=== PATIENT | male | born 1995 | race Caucasian/White ===

== ENCOUNTER 2017-05-22 21:49 | Emergency (ER) | payer OTHER ==
[~2017-05-22] VITALS: Ht 152.4 cm; Wt 88.5 kg
[~2017-05-22 21:49] MED LIST: Amoxicillin500 MG PO; Bactrim Ds Tab1 EACH PO; CEPH500 PO; CLAR250 PO; CYCL10 PO; HYDACE5 PO; HYDACE5325 PO; Keflex500 MG PO; PRED20 PO; Percocet 5-3251 EACH PO
[2017-05-22] MEDS ORDERED: PENVK500 PO (22:37)
[2017-05-22] MEDS ORDERED: IBUP800 PO (22:37)
[2017-10-30] MEDS ORDERED: Cleocin HCl300 MG PO (18:07)
[2018-03-02] MEDS ORDERED: Prednisone20 MG PO (08:38)
== END 2017-05-22 22:30 | disposition home or self-care (01) ==
LOC: ER 21:49
DX: K02.9 Dental caries, unspecified (principal); K03.81 Cracked tooth; Z87.891 Personal history of nicotine dependence
CPT/HCPCS: 99283

== ENCOUNTER 2017-06-13 20:19 | Emergency (ER) | payer OTHER ==
[~2017-06-13] VITALS: Ht 182.9 cm; Wt 86.2 kg
[~2017-06-13 20:19] MED LIST changes: +IBUP800 PO; +PENVK500 PO
[2017-06-13] MEDS ORDERED: ERYT1OIN LEFTEYE (23:54)
[2017-10-30] MEDS ORDERED: Cleocin HCl300 MG PO (18:07)
[2018-03-02] MEDS ORDERED: Prednisone20 MG PO (08:38)
== END 2017-06-14 00:06 | disposition home or self-care (01) ==
LOC: ER 20:19
DX: T15.12XA Foreign body in conjunctival sac, left eye, initial encounter (principal); Z87.891 Personal history of nicotine dependence
CPT/HCPCS: 99283

== ENCOUNTER 2017-10-20 10:30 | Emergency (ER) | payer OTHER ==
[~2017-10-20] VITALS: Ht 182.9 cm; Wt 81.7 kg
[~2017-10-20 10:30] MED LIST changes: +ERYT1OIN LEFTEYE
[2017-10-20] MEDS ORDERED: PENVK500 PO (11:42)
== END 2017-10-20 12:06 | disposition home or self-care (01) ==
LOC: ER 10:30
DX: K04.7 Periapical abscess without sinus (principal); Z79.2 Long term (current) use of antibiotics; F17.200 Nicotine dependence, unspecified, uncomplicated
CPT/HCPCS: 99282

== ENCOUNTER 2018-05-18 15:51 | Observation (INO) | payer OTHER ==
[~2018-05-18] VITALS: Ht 182.9 cm; Wt 86.2 kg
[~2018-05-18 15:51] MED LIST changes: +Cleocin HCl300 MG PO; +Prednisone20 MG PO
[2018-05-18 17:35] LABS: BASOPHILS ABSOLUTE AUTO 0.04 K/mm3 (0.00-0.23); BASOPHILS PERCENT AUTO 0 % (0-2); EOSINOPHILS ABSOLUTE AUTO 0.01 K/mm3 (0.00-0.68); EOSINOPHILS PERCENT AUTO 0 % (0-6); Hematocrit 50.2 % (37.0-53.0); Hemoglobin 17.5 g/dL (13.5-17.5); IMMATURE GRAN ABSOLUTE AUTO 0.04 K/mm3 (0.00-0.10); IMMATURE GRAN PERCENT AUTO 0 % (0-1); LYMPHOCYTES ABSOLUTE AUTO 1.87 K/mm3 (0.84-5.20); LYMPHOCYTES PERCENT AUTO 16 % (21-46); MONOCYTES ABSOLUTE AUTO 0.71 K/mm3 (0.16-1.47); MONOCYTES PERCENT AUTO 6 % (4-13); Mean Corpuscular HGB 31.7 pg (26.0-34.0); Mean Corpuscular HGB Conc 34.9 g/dL (31.5-36.5); Mean Corpuscular Volume 91 fL (80-100); Mean Platelet Volume 9.8 fL (9.1-12.4); NEUTROPHILS ABSOLUTE AUTO 9.17 K/mm3 (1.96-9.15); NEUTROPHILS PERCENT AUTO 78 % (41-73); Platelet Count 255 K/mm3 (150-400); RDW Coefficient Variation 11.9 % (11.7-14.2); RDW Standard Deviation 39.6 fL (35.1-46.3); Red Blood Cell Count 5.52 M/mm3 (4.30-5.90); White Blood Cell Count 11.84 K/mm3 (4.00-11.30)
[2018-05-18 17:53] LABS: Alanine Aminotransfer (ALT/SGP 32 U/L (12-78); Albumin, Blood 4.7 g/dL (3.4-5.0); Albumin/Globulin Ratio 1.3 (0.8-1.8); Alk Phos 110 U/L (50-136); Anion Gap 11 mmol/L (6-16); Aspartate Aminotrans (AST/SGOT 52 U/L (12-37); Bilirubin, Total 1.6 mg/dL (0.1-1.0); Blood Urea Nitrogen 23 mg/dL (8-24); Bun/Creatinine Ratio 26.7 (12.0-20.0); CO2, Blood 23 mmol/L (21-32); Calcium, Blood 9.5 mg/dL (8.5-10.1); Chloride, Blood 105 mmol/L (98-108); Creatinine, Blood 0.86 mg/dL (0.60-1.20); Ethanol (Alcohol), Blood, Med <3 mg/dL; Globulin, Blood 3.5 g/dL (2.2-4.0); Glomerular Filtration Rate >60 (60-); Glucose, Blood 137 mg/dL (70-99); Potassium, Blood 4.5 mmol/L (3.5-5.5); Salicylate 3.1 mg/dL (2.8-20.0); Sodium, Blood 139 mmol/L (136-145); Total Protein, Blood 8.2 g/dL (6.4-8.2)
[2018-05-18 17:56] LABS: Thyroid Stimulating Hormone 0.857 uIU/mL (0.360-4.800); Thyroxine (T4) 10.2 ug/dL (4.5-12.1)
[2018-05-18 17:58] LABS: Acetaminophen, Random <2.0 ug/mL (10.0-30.0)
[2018-05-18 18:10] LABS: Source, Urine Clean Catch
[2018-05-18 18:32] LABS: Appearance, Urine Clear (Clear); Blood, Urine 1+ (Neg); Color, Urine Yellow (P-Yellow); Glucose Qualitative, Urine Neg (Neg); Ketones, Urine 4+ (Neg); Leukocyte Esterase, Urine 1+ (Neg); Nitrite, Urine Neg (Neg); Protein, Urine 2+ (Neg); Specific Gravity, Urine 1.025 (1.003-1.022); Urobilinogen, Urine 1+ (Normal)
[2018-05-18 19:00] LABS: U Amphetamine Screen DETECTED; U Barbituate Screen Not Detected; U Benzodiazapine Screen Not Detected; U Buprenorphine Screen Not Detected; U Cannabinoids Screen Not Detected; U Cocaine Screen Not Detected; U Methadone Screen Not Detected; U Methamphetamine Screen DETECTED; U Opiates Screen Not Detected; U Oxycodone Screen Not Detected; U Phencyclidine Screen Not Detected; U Propoxyphene Screen Not Detected
[2018-05-18 19:01] LABS: Bilirubin, Urine 1+ (Neg)
[2018-05-18 19:22] LABS: Squamous Epithelial Cells Not Seen /hpf (Few)
[2018-05-18 19:23] LABS: Bacteria Not Seen /hpf; Red Blood Cells, Urine 0-2 /hpf (0-2); White Blood Cells, Urine 0-2 /hpf (0-5)
[2018-05-20] MEDS ORDERED: PROZAC20 MG PO (11:00)
== END 2018-05-20 12:04 | disposition home or self-care (01) ==
LOC: ER 15:51 → EOR 15:52
PROVIDERS: Emergency Medicine
DX: R45.851 Suicidal ideations (principal); F32.9 Major depressive disorder, single episode, unspecified; F15.14 Other stimulant abuse with stimulant-induced mood disorder; Z88.0 Allergy status to penicillin; Z87.891 Personal history of nicotine dependence; Z79.899 Other long term (current) drug therapy
CPT/HCPCS: 36415; 80053; 81001; 84436; 84443; 85025; 87086; 93005; 93010; 99285; G0378; G0480; Q3014